=== PATIENT | male | born 2000 | race Hispanic/Latino ===

== ENCOUNTER 2023-08-07 00:42 | Day surgery (SDC) | payer SELFPAY ==
[2023-08-07] VITALS (28 sets, daily range): BP systolic 97–145; BP diastolic 54–84; PULSE 70–95; RESP 16–21; TEMP 36.1–36.4; O2SAT 96–100
--- NOTE | ~2023-08-07 | CT_ITS ---
EXAMINATION: CT abdomen pelvis w con INDICATION: Right lower quadrant pain TECHNIQUE: Computed tomographic images of the abdomen and pelvis were obtained after the administrati on of 100 cc of Omnipaque 350 intravenous contrast. The dose-length product (DLP) was 231.32 mGy-cm. Automated exposure control and iterative reconstruction technique were employed. COMPARISON: None available FINDINGS: Minimal dependent atelectasis is present in the lung bases. The heart size is normal. The l iver, spleen, pancreas, gallbladder, and adrenal glands are normal. The kidneys are unremarkable. No pathologically enlarged abdominal or pelvic lymph nodes are identified. No free intraperitoneal gas o r evidence of bowel obstruction. The mildly dilated appendix measures up to 8 mm. No periappendiceal abscess or perforation are identified. There is formed stool in nondistended loops of small bowel, co nsistent with slow transit. IMPRESSION: 1. Uncomplicated acute appendicitis. 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
[2023-08-07 01:08] LABS: Basophils Percent Auto 0.2 % (0.2-1.2); Eosinophils Percent Auto 0.2 % (0-4.4); Hematocrit 45.1 % (42.0-52.0); Hemoglobin 15.6 g/dL (14.0-18.0); Immature Granulocyte Absolute 0.06 K/mm3 (0.00-0.031); Immature Granulocyte Percent A 0.4 % (0-0.5); Lymphocytes Absolute Auto 1.84 K/mm3 (0.9-3.2); Lymphocytes Percent Auto 11.1 % (18.3-44.2); Mean Corpuscular HGB Conc 34.6 g/dl (32-36); Mean Corpuscular Hemoglobin 28.7 pg (26-34); Mean Corpuscular Volume 82.9 fl (80-100); Mean Platelet Volume 10.5 fl (7.4-10.4); Monocytes Percent Auto 6.2 % (2.6-8.5); Neutrophils Absolute Auto 13.6 K/mm3 (1.3-6.7); Neutrophils Percent Auto 81.9 % (45.5-73.1); Platelet Count Result 233 k/mm3 (150-375); Red Blood Count 5.44 M/mm3 (4.6-6.20); White Blood Count 16.6 K/mm3 (4.5-10.0)
[2023-08-07 01:19] LABS: Alanine Aminotransferase 20 U/L (6-50); Albumin Level 4.7 g/dL (3.5-5.1); Alkaline Phosphatase 78 U/L (38-126); Anion Gap 11 mmol/L (8-16); Aspartate Amino Transferase 31 U/L (17-59); Bilirubin,Total 0.7 mg/dL (0.2-1.3); Blood Urea Nitrogen 25 mg/dL (9-20); Calcium 9.4 mg/dL (8.4-10.2); Carbon Dioxide 25 mmol/L (22-30); Chloride 101 mmol/L (98-107); Estimated CRCL calculation 96 ml/min; Estimated Glomerular Filt Rate > 60; Glucose 118 mg/dL (65-110); Lipase 44 U/L (23-300); Potassium 3.6 mmol/L (3.4-5.0); Sodium 137 mmol/L (137-145)
[2023-08-07] MEDS: ONDANSETRON INJ 4 MG/2 ML VIAL IV PUSH ×2 (02:10→10:27)
[2023-08-07] MEDS: SODIUM CHLORIDE 0.9% IV 3,000 ML 999 ML IV CONT (02:11)
[2023-08-07] MEDS: HYDROmorphone HCL INJ (*CRX) 1 MG/ML SYR 0.5 MG IV PUSH (02:11)
--- NOTE | 2023-08-07 02:28 | ED.GENADULT ---
HPI - General Adult General Chief complaint: Nausea/Vomiting/Diarrhea <Sathish Gaytan MD - Last Filed: 08/07/23 07:04> Stated complaint: vomiting x 2 hours <Sathish Gaytan MD - Last Filed: 08/07/23 07:04> Time Seen by Provider: 08/07/23 01:39 <Sathish Gaytan MD - Last Filed: 08/07/23 07:04> History of Present Illness HPI narrative: [place]er-speaking patient. Driver License Technician service was used for all communication This is a 22-year-old male presenting with nausea vomiting abdominal pain. Pain started 3 hours prior to arrival. Pain is a sharp crampy pain throughout his abdomen. He has also had multiple episodes of nausea and vomiting. Denies fever chills, flu-like symptoms chest pain difficulty breathing. <Sathish Gaytan MD - Last Filed: 08/07/23 07:04> Related Data Allergies/adverse reactions: Allergies Allergy/AdvReac Type Severity Reaction Status Date / Time No Known Allergies Allergy Verified 08/07/23 01:43 <Sathish Gaytan MD - Last Filed: 08/07/23 07:04> [facility] Past Medical History Medical History: Medical History (Updated 08/07/23 @ 09:03 by Joe Hernandez DO) No pertinent past medical history <Sathish Gaytan MD - Last Filed: 08/07/23 07:04> Surgical History Surgical History: Surgical History (Updated 08/07/23 @ 09:01 by Joe Hernandez DO) No pertinent past surgical history <Sathish Gaytan MD - Last Filed: 08/07/23 07:04> Social History Social History: Social History (Updated 08/07/23 @ 09:01 by Joe Hernandez DO) Smoking status: Smoker, status unknown Alcohol intake: never Substance use: unknown <Sathish Gaytan MD - Last Filed: 08/07/23 07:04> Exam Narrative: APPEARANCE: No apparent distress. Head: atraumatic. EYES: EOMI, NOSE: Atraumatic NECK: Trachea midline RESPIRATORY: No increased rate of breathing, CTAB CARDIOVASCULAR: RRR, ABDOMINAL: Tenderness to palpation in the right lower quadrant. Voluntary guarding. No rebound tenderness. MUSCULOSKELETAl: No obvious deformities NEURO: Alert. Moving 4/4 extremities SKIN:: Warm, dry. Normal color PSYCHIATRIC: Normal affect <Sathish Gaytan MD - Last Filed: 08/07/23 07:04> Course Reevaluation(s) Reevaluation #1: Patient care was signed out to me by the overnight doctor. At time of sign out CT scan was pending. Patient does have a leukocytosis of 16.6. No significant abnormalities the CMP. UA shows no evidence infection. CT scan was concerning for uncomplicated acute appendicitis. Patient was started on Cipro and Flagyl. Patient denies any significant past medical history. Patient denies any surgical history. Patient is not taking medications. Surgery was consulted. Patient went directly to the operating room with anticipated discharge to home. <Adis Spencer MD - Last Filed: 08/07/23 09:27> Vital Signs Vital signs: Vital Signs Temperature 97.5 F L 08/07/23 00:45 Pulse Rate 89 08/07/23 00:45 Respiratory Rate 18 08/07/23 00:45 Blood Pressure 114/80 08/07/23 00:45 Pulse Oximetry 100 08/07/23 00:45 Oxygen Delivery Room Air 08/07/23 00:45 Temperature 97.5 F L 08/07/23 00:45 Pulse Rate 78 08/07/23 08:34 Respiratory Rate 17 08/07/23 08:34 Blood Pressure 116/73 08/07/23 08:34 Pulse Oximetry 99 08/07/23 08:45 Oxygen Delivery Room Air 08/07/23 00:45 <Sathish Gaytan MD - Last Filed: 08/07/23 07:04> Vital Signs Temperature 97.5 F L 08/07/23 00:45 Pulse Rate 89 08/07/23 00:45 Respiratory Rate 18 08/07/23 00:45 Blood Pressure 114/80 08/07/23 00:45 Pulse Oximetry 100 08/07/23 00:45 Oxygen Delivery Room Air 08/07/23 00:45 Temperature 97.5 F L 08/07/23 00:45 Pulse Rate 78 08/07/23 08:34 Respiratory Rate 17 08/07/23 08:34 Blood Pressure 116/73 08/07/23 08:34 Pulse Oximetry 99 08/07/23 08:45 Oxygen Delivery Room Air 08/07/23 00:45 <Adis Maldonado [facility]
[2023-08-07 04:39] LABS: Appearance Urine Cloudy (Clear); Bacteria Urine None Seen /hpf; Bilirubin Urine Negative (Negative); Blood Urine Negative (Negative); Color Urine Yellow (Yellow); Glucose Urine UA Negative (Negative); Ketones Urine 2+ mg/dL (Negative); Leukocyte Esterase Ur Negative LEU/UL (Negative); Nitrate Urine Negative (Negative); Non Pathogenic Casts 0-2; Protein Urine Negative (Negative); RBC Urine 0-2 /hpf (0-2); Squamous Epithelial Cell Urine None seen /hpf (Few); Urobilinogen Urine 0.2 mg/dL (<2.0); WBC Urine 0-5 /hpf; pH Urine 8.5 (5.0-9.0)
[2023-08-07 04:50] LABS: Add Urine Microscopic? YES; Specific Grav Ur 1.046 (1.001-1.035)
--- NOTE | 2023-08-07 08:41 | WPDANESEPPF ---
Anes - Initial Pre Proc Eval Procedure: Operation Date: 08/07/23 08:40 Proposed Procedures p Laparoscopic Appendectomy - Joe Hernandez DO Date/Time: 08/07/23 08:41 Pre Op Diagnosis: Lap Appy Patient Data Age: 22 Gender: M Height: 1.57 m Weight: 58.37 kg Last Vital Signs Temp 36.4 C L 08/07/23 00:45 Pulse 85 08/07/23 07:10 Resp 18 08/07/23 07:10 BP 97/73 L 08/07/23 07:10 Pulse Ox 100 08/07/23 07:10 O2 Del Method Room Air 08/07/23 00:45 Allergies Allergy/AdvReac Type Severity Reaction Status Date / Time No Known Allergies Allergy Verified 08/07/23 01:43 Laboratory Tests 08/07/23 08/07/23 01:00 04:13 WBC 16.6 H K/mm3 (4.5-10.0) RBC 5.44 M/mm3 (4.6-6.20) Hgb 15.6 g/dL (14.0-18.0) Hct 45.1 % (42.0-52.0) MCV 82.9 fl (80-100) MCH 28.7 pg (26-34) MCHC 34.6 g/dl (32-36) RDW 12.0 % (11.5-14.5) Plt Count 233 k/mm3 (150-375) MPV 10.5 H fl (7.4-10.4) Immature Gran % (Auto) 0.4 % (0-0.5) Neut % (Auto) 81.9 H % (45.5-73.1) Lymph % (Auto) 11.1 L % (18.3-44.2) [place] % (Auto) 6.2 % (2.6-8.5) Eos % (Auto) 0.2 % (0-4.4) Baso % (Auto) 0.2 % (0.2-1.2) Lymph # (Auto) 1.84 K/mm3 (0.9-3.2) [place] # (Auto) 1.0 H K/mm3 (0.1-0.6) Eos # (Auto) 0.0 K/mm3 (0-0.3) Baso # (Auto) 0.0 K/mm3 (0.0-0.1) Abs Immat Gran (auto) 0.06 H K/mm3 (0.00-0.031) Absolute Neuts (auto) 13.6 H K/mm3 (1.3-6.7) Absolute Nucleated RBC 0.0 K/mm3 (0.0-0.012) Nucleated RBC % 0.0 % (0.0-0.2) Sodium 137 mmol/L (137-145) Potassium 3.6 mmol/L (3.4-5.0) Chloride 101 mmol/L (98-107) Carbon Dioxide 25 mmol/L (22-30) Anion Gap 11 mmol/L (8-16) BUN 25 H mg/dL (9-20) Creatinine 0.80 mg/dL (0.7-1.3) Estim Creat Clear Calc 96 ml/min Estimated GFR > 60 (59 - ) Glucose 118 H mg/dL (65-110) Calcium 9.4 mg/dL (8.4-10.2) Total Bilirubin 0.7 mg/dL (0.2-1.3) AST 31 U/L (17-59) ALT 20 U/L (6-50) Alkaline Phosphatase 78 U/L (38-126) Total Protein 8.0 g/dL (6.3-8.2) Albumin 4.7 g/dL (3.5-5.1) Lipase 44 U/L (23-300) Urine Color Yellow (Yellow) Urine Appearance Cloudy H (Clear) Urine pH 8.5 (5.0-9.0) Ur Specific [place] 1.046 H (1.001-1.035) Urine Protein Negative mg/dL (Negative) Urine Glucose (UA) Negative mg/dL (Negative) Urine Ketones 2+ H mg/dL (Negative) Ur Blood (Man) Negative (Negative) Urine Nitrate Negative (Negative) Urine Bilirubin Negative (Negative) Urine Urobilinogen 0.2 mg/dL (<2.0) Leukocyte Esterase Rfl Negative RADHA/UL (Negative) Urine RBC 0-2 /hpf (0-2) Urine WBC 0-5 /hpf Ur Squamous Epith Cells None seen /hpf (Few) Urine Bacteria None seen /hpf Urine Casts 0-2 Patient hx anesthesia problems: none Family hx anesthesia problems: none Results Review: All pre-operative results and documents have been reviewed as part of the pre-operative evaluation. Anes - Eval Final PreProcedure Day of Procedure 08/07/23 08:41 Patient weight: normal Heart: regular rate and rhythm Lungs: clear to auscultation Airway: Mallampati scale class II Neurological: alert and oriented Last oral intake: >/= 8 hours ASA classification: II Emergent: yes Anesthetic plan: proceed Anesthesia type and monitoring: general ETT and standard monitoring Results Review: All pre-operative results and documents have been reviewed as part of the pre-operative evaluation. Informed Consent: The patient's anesthetic plan and its attendant risks and benefits were discussed with the patient/family/POA. Questions were solicited and answers prov
--- NOTE | 2023-08-07 08:59 | WPDHPUPDATE1 ---
History and Physical Update Update Date/Time: 08/07/23 08:59 History and Physical has been reviewed, including an updated exam of the patient. There are NO changes in the patient's condition. Risks, benefits, and alternatives have been discussed and questions answered. Patient agrees to proceed with procedure.
--- NOTE | 2023-08-07 08:59 | PM.IMHP ---
H&P: HPI History of Present Illness Date/Time: 08/07/23 08:59 Chief Complaint: Right lower quadrant pain Narrative: This is a 22-year-old man who presents with right lower quadrant pain to the emergency department. He began having pain last night and it progressed throughout the night. He has never had symptoms like this before. He did began developing nausea and vomiting. He denies any fevers. He was noted to have an elevated white blood count and CT showed evidence of acute appendicitis. Review of Systems Review of Systems: All systems reviewed & are unremarkable except as noted in HPI and below Constitutional: Constitutional: Denies chills and Denies fever(s) Eyes: Eyes: Denies change in vision ENT: Denies hearing loss, Denies neck pain and Denies sore throat Cardiovascular: Cardiovascular: Denies chest pain and Denies dyspnea Respiratory: Respiratory: Denies cough, Denies dyspnea and Denies wheezing Gastrointestinal: Gastrointestinal: Reports as per HPI Genitourinary: Genitourinary: Denies hematuria and Denies dysuria Musculoskeletal: Musculoskeletal: Denies arthralgias, Denies joint swelling and Denies neck pain Allergic/Immunologic: Allergic/Immunologic: Denies wheezing [facility] Past Medical History Medical History (Updated 08/07/23 @ 09:03 by Joe Hernandez DO) No pertinent past medical history Surgical History Surgical History (Updated 08/07/23 @ 09:01 by Joe Hernandez DO) No pertinent past surgical history Social History Social History (Updated 08/07/23 @ 09:01 by Joe Hernandez DO) Smoking status: Smoker, status unknown Alcohol intake: never Substance use: unknown Meds Home Medications and Allergies Allergies Allergy/AdvReac Type Severity Reaction Status Date / Time No Known Allergies Allergy Verified 08/07/23 01:43 Vital Signs Vital Signs - 24 hr 08/07/23 00:45 08/07/23 01:39 08/07/23 06:46 Temperature 36.4 C L Pulse Rate 89 70 80 Respiratory Rate 18 18 18 Blood Pressure 114/80 118/74 103/60 Pulse Oximetry 100 96 100 Oxygen Delivery Room Air 08/07/23 07:10 08/07/23 01:42 08/07/23 01:43 Temperature Pulse Rate 85 Respiratory Rate 18 Blood Pressure 97/73 L 118/74 Pulse Oximetry 100 100 100 Oxygen Delivery 08/07/23 01:45 08/07/23 02:00 08/07/23 02:01 Temperature Pulse Rate Respiratory Rate Blood Pressure 114/72 Pulse Oximetry 100 98 98 Oxygen Delivery 08/07/23 06:46 08/07/23 06:47 08/07/23 07:00 Temperature Pulse Rate Respiratory Rate Blood Pressure 103/60 Pulse Oximetry 100 100 100 Oxygen Delivery 08/07/23 07:01 08/07/23 07:15 08/07/23 07:37 Temperature Pulse Rate 78 Respiratory Rate 20 Blood Pressure 97/73 L Pulse Oximetry 100 99 99 Oxygen Delivery 08/07/23 07:38 08/07/23 07:45 08/07/23 08:00 Temperature Pulse Rate 88 Respiratory Rate 19 Blood Pressure 145/77 H Pulse Oximetry 97 100 100 Oxygen Delivery 08/07/23 08:02 08/07/23 08:32 08/07/23 08:34 Temperature Pulse Rate 88 78 Respiratory Rate 16 17 Blood Pressure 124/76 116/73 Pulse Oximetry 99 100 99 Oxygen Delivery 08/07/23 08:45 Temperature Pulse Rate Respiratory Rate Blood Pressure Pulse Oximetry 99 Oxygen Delivery Exam Const: General: alert; No acute distress Orientation/consciousness: patient oriented x3 Limitations: no limitations HENMT: Head: normocephalic and atraumatic Ears: hearing grossly normal bilaterally Face/Nose/Sinus: Normal external nose present and Normal nares present Mouth: Yes Normal oral and palatal mucosa present and Yes moist mucous membranes Eyes: General: appearance normal, both eyes and all related structures Conjunctivae: conjunctivae normal Sclera: sclerae normal Pupils: Equal, round and reactive pupils present EOM: EOMs intact bilaterally Neck: Neck: normal visual inspection, full ROM, no lymphadenopathy, supple
[2023-08-07] MEDS: metroNIDAZOLE 500 MG/ISO 100ML 500 MG/100 ML BAG 100 MG IVPB (09:12)
[2023-08-07] MEDS: BUPIVACAINE/EPINEPHRINE 0.5% 50 ML VIAL 30 ML INFILTRATE (09:42)
--- NOTE | 2023-08-07 09:54 | W.PM.PROC2 ---
Procedure Note - Detailed Date of Procedure 08/07/23 Pre-op Diagnosis Acute appendicitis Post-op Diagnosis Same Procedure Performed Laparoscopic appendectomy Surgeon Joe Hernandez, DO Anesthesia General and Local (0.5% bupivacaine with epinephrine) Indications This is a 22-year-old man who presented to the emergency department with right lower quadrant abdominal pain that started last night. Pain was worsening throughout the night and he also began experiencing nausea and vomiting. He was noted to have an elevated white blood count and CT showed evidence of acute appendicitis. Discussions were made with the patient about treatment options and decision was made to proceed with laparoscopic appendectomy, possible open. Findings Laparoscopic appendectomy was performed. The appendix appeared indurated and inflamed near the tip. The base appeared healthy and viable. No other intra-abdominal abnormalities were noted and there was no sign of perforation or abscess. The appendix was removed and sent to the lab for pathology. Description of Procedure Procedure as well as risks, benefits, and alternatives were explained to the patient. The patient agreed to proceed. Written consent was obtained and placed in chart prior to procedure. The patient was brought back to surgical suite. He was placed supine on operating table. Time-out was done to confirm the patient and procedure. The patient was then intubated by the Anesthesia Department. His abdomen was prepped and draped in sterile fashion using chlorhexidine prep. A 12 mm incision was made at the inferior portion of the umbilicus. Blunt dissection was carried out down to the linea alba. The linea alba was then incised using a 15 blade scalpel. Then bluntly entered into the peritoneal cavity. A 12 mm trocar was then inserted, and carbon dioxide insufflation was used to create a pneumoperitoneum. The camera was inserted and the abdomen was inspected. No immediate abnormalities were identified. The patient was then placed in slight Trendelenburg position and rotated to the left. A 5 mm incision was made in the suprapubic region in midline and a 5 mm trocar was inserted under direct visualization. A 5 mm incision was made in the left lower quadrant and a 5 mm trocar was inserted under direct visualization. The right lower quadrant was carefully inspected. The cecum was identified and then this was traced back to the appendix. The appendix was identified and grasped at the mesoappendix and lifted anteriorly. Careful blunt dissection was carried out at the base of the appendix through the mesoappendix using a [place] grasper. An Endo-ROSE MARY 45 mm blue load stapler was then advanced across the base of the appendix and clamped and fired. A white reload was then clamped across the mesoappendix and fired. This freed up our appendix completely. It was then placed in an EndoCatch bag and removed through the umbilical port. The staple lines were then inspected. Hemostasis appeared adequate and the staple lines appeared secure. The area was then irrigated with sterile saline. The pelvis was then carefully inspected and irrigated with sterile saline as well and the remainder of the abdomen was carefully inspected. The patient was then flattened out in bed. One final inspection was made around the abdominal cavity and no other abnormalities were seen. The ports were then removed under direct visualization. The camera was removed and the pneumoperitoneum was released. The fascia of the umbilical incision was reapproximated using an 0 Vicryl jvetpr-ae-laghm suture. 0.5% bupivacaine with epinephrine was infiltrated locally around each of the incisions. The skin of the incisions was then approximated using 4-0 Monocryl subcuticular suture and Exofin glue was applied on top. The patient was then awakened from anesthesia, extubated, and transferred to Recovery. Estimated Blood Loss 5 Pathology Yes (Appendix) Com
[2023-08-07] MEDS: LACTATED RINGERS 1,000 ML 30 ML IV CONT ×2 (09:58→10:45)
[2023-08-07] MEDS: fentaNYL CITRATE INJ (*CRX) 100 MCG/2 ML VIAL 25 MCG IV PUSH ×4 (10:25→10:38)
[2023-08-07] MEDS: oxyCODONE HCL (*CRX) 5 MG TAB IR PO (11:17)
== END 2023-08-07 11:50 | disposition home or self-care (01) ==
LOC: ANHED 08:30 → ANHSURGERY 08:42
PROVIDERS: Emergency Provider Emergency Medicine; Visit Provider Surgery
PROC: 0DTJ4ZZ Resection of Appendix, Percutaneous Endoscopic Approach (ICD-10-PCS; CPT 44970; principal; 2023-08-07 08:40)
DX: K35.80 Unspecified acute appendicitis (principal)
CPT/HCPCS: 44970; 36415; 74177; 80053; 81001; 83690; 85025; 87040; 88304; 96361; 96365; 96375; 99285; A9270; J0330; J0696; J1100; J1170; J1836; J2405; J2704; J3010; J7030; J7120; Q9967